=== PATIENT | female | born 1945 | race Caucasian/White ===

== ENCOUNTER → 2017-07-15 | Outpatient (CLI) | payer OTHER, BC ==
[2017-07-15 13:54] LABS: BASO % 0.5 %; BASO ABS # 0.05 K/uL (0-0.2); COMPLETE YES; EOS % 5.6 %; HEMATOCRIT 44.8 % (37-47); IG% 0.2 %; LYMPH % 31.7 %; LYMPH ABS # 3.06 K/uL (1.2-3.4); MEAN CELL VOLUME 90.3 fL (80-100); MEAN CORPUSCULAR HEMOGLOBIN 28.8 pg (25-34); MEAN CORPUSCULAR HGB CONC 31.9 g/dl (32-36); MEAN PLATELET VOLUME 9.8 fL (7.4-10.4); MONO % 17.3 %; NEUT % 44.7 %; PLATELET COUNT 283 K/uL (130-400); RED BLOOD COUNT 4.96 M/uL (4.2-5.4); WHITE BLOOD COUNT 9.64 K/uL (4.8-10.8)
[2017-07-15 14:14] LABS: ALT/SGPT 17 U/L (12-78); AST/SGOT 18 U/L (15-37); BLOOD UREA NITROGEN 25 mg/dl (7-18); BUN/CREATININE RATIO 18.9 (10-20); CALCIUM 10.1 mg/dl (8.5-10.1); CARBON DIOXIDE 31 mmol/L (21-32); CHLORIDE 105 mmol/L (98-107); CHOLESTEROL 145 mg/dl (0-200); GLUCOSE 87 mg/dl (70-99); MAGNESIUM 2.1 mg/dl (1.8-2.4); POTASSIUM 4.5 mmol/L (3.5-5.1); SODIUM 141 mmol/L (136-145)
[2017-07-15 14:18] LABS: ALKALINE PHOSPHATASE 112 U/L (45-117); HDL CHOLESTEROL 74 mg/dl; LDL CHOLESTEROL CALCULATED 55 mg/dl; TRIGLYCERIDES 79 mg/dl (0-150); VERY LOW DENSITY LIPOPROT CALC 16 mg/dl
== END | disposition home or self-care (01) ==
LOC: C.LABSPEC 13:27
PROVIDERS: ATTEND Family Medicine
DX: J44.9 Chronic obstructive pulmonary disease, unspecified (principal); I48.2 Chronic atrial fibrillation; I10 Essential (primary) hypertension

== ENCOUNTER → 2018-07-06 | Outpatient (CLI) | payer OTHER, BC ==
[2018-07-06 13:56] LABS: BASO % 0.6 %; BASO ABS # 0.05 K/uL (0-0.2); EOS % 6.2 %; EOS ABS # 0.53 K/uL (0-0.5); HEMOGLOBIN 14.1 g/dL (12.0-16.0); IG# 0.02 K/uL (0.00-0.02); LYMPH % 27.2 %; LYMPH ABS # 2.34 K/uL (1.2-3.4); MEAN CELL VOLUME 91.5 fL (80-100); MEAN CORPUSCULAR HEMOGLOBIN 28.7 pg (25-34); MEAN CORPUSCULAR HGB CONC 31.3 g/dl (32-36); MEAN PLATELET VOLUME 9.9 fL (7.4-10.4); MONO % 17.3 %; MONO ABS # 1.49 K/uL (0.11-0.59); NEUT % 48.5 %; NEUT ABS # 4.18 K/uL (1.4-6.5); PLATELET COUNT 265 K/uL (130-400); RED CELL DISTRIBUTION WIDTH CV 15.2 % (11.5-14.5); RED CELL DISTRIBUTION WIDTH SD 51.2 fL (36.4-46.3); WHITE BLOOD COUNT 8.61 K/uL (4.8-10.8)
[2018-07-06 16:29] LABS: ALBUMIN 3.5 gm/dl (3.4-5.0); ALKALINE PHOSPHATASE 107 U/L (45-117); ALT/SGPT 19 U/L (12-78); AST/SGOT 16 U/L (15-37); BLOOD UREA NITROGEN 17 mg/dl (7-18); CALCIUM 9.3 mg/dl (8.5-10.1); CARBON DIOXIDE 27 mmol/L (21-32); CHOLESTEROL 132 mg/dl (0-200); CREATININE 1.17 mg/dl (0.60-1.20); GLUCOSE 91 mg/dl (70-99); LDL CHOLESTEROL CALCULATED 45 mg/dl; POTASSIUM 4.3 mmol/L (3.5-5.1); SODIUM 140 mmol/L (136-145); TOTAL PROTEIN 7.4 gm/dl (6.4-8.2)
== END | disposition home or self-care (01) ==
LOC: C.LABSPEC 13:12
PROVIDERS: ATTEND Family Medicine
DX: I10 Essential (primary) hypertension (principal); I48.2 Chronic atrial fibrillation; J44.9 Chronic obstructive pulmonary disease, unspecified